=== PATIENT | male | born 1995 | race Two or more races ===

== ENCOUNTER 2020-03-02 09:32 | Emergency (ER) | payer OTHER ==
[~2020-03-02] VITALS: Ht 177.8 cm; Wt 70.3 kg
== END 2020-03-03 15:10 | disposition home or self-care (01) ==
LOC: ER 09:32
DX: S00.83XA Contusion of other part of head, initial encounter (principal); W18.09XA Striking against other object with subsequent fall, initial encounter; Y93.89 Activity, other specified; Y92.69 Other specified industrial and construction area as the place of occurrence of the external cause; Y99.8 Other external cause status